=== PATIENT | male | born 1955 | race Caucasian/White ===

== ENCOUNTER 2020-10-19 11:55 | Emergency (ER) | payer BC, MEDICARE ==
[2020-10-19] MEDS ORDERED: Sodium Chloride 0.9% 2.5 ML Syringe FLUSH PRN (12:06)
[2020-10-19] MEDS ORDERED: Sodium Chloride 0.9% 10 ML Syringe FLUSH PRN (12:06)
--- NOTE | 2020-10-19 12:10 | EDM.PDOC ---
ED HPI GENERAL MEDICAL PROBLEM - General Chief Complaint: Cardiovascular Problem Stated Complaint: ELEVATED BP Time Seen by Provider: 10/19/20 11:59 - History of Present Illness INITIAL COMMENTS - FREE TEXT/NARRATIVE: History of present illness: [] For 3 or 4 days patient has had episodic lightheadedness. 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 The patient today felt lightheaded again. Each time he is lightheaded his blood pressure has been 160 your iron today it was over 170. He felt like he needed to be evaluated because of this new onset lightheadedness and new onset of elevated blood pressure readings. The patient's brother is treated for hypertension but the patient is not diabetic not hypertensive and does not get treated for high cholesterol. He is an active robison. His father did of a heart attack at the age of 64. There are no strokes in the family. The patient is a non-smoker. Review of systems: As per history of present illness and below otherwise all systems reviewed and negative. Past medical history: As per history of present illness and as reviewed below otherwise noncontributory. Surgical history: As per history of present illness and as reviewed below otherwise noncontributory. Social history: No reported history of drug or alcohol abuse. Family history: As per history of present illness and as reviewed below otherwise noncontribu tory. Physical exam: Constitutional - well developed, well-nourished and in no acute distress HEENT - normocephalic, no evidence of trauma - external nose and mouth normal - no mass in neck and no JVD - mucosae moist EYES - full EOM, PERRL, no icterus - no evidence of inflammation, injection, or drainage Respiratory - no respiratory distress, equal bilateral expansion, lungs clear to auscultation and no abnormal lung sounds Cardiovascular - Regular Rhythm with S1 and S2 appreciated and no murmur, gallop or rub. No carotid bruits appreciated GI - abdomen soft without distension or organomegaly - normal bowel sounds - no guard or rebound Musculoskeletal no gross deformity of long bones or joints - no tenderness, swelling or edema Neurologic -my customary brief neurologic exam is negative. Alert and oriented times four - CN II-XII grossly intact - motor sensory and coordination symmetrically normal Psychiatric - appropriate mood and affect with normal thought content Hematologic - No petechiae or purpura - mucosa appropriate color and sclera not pale - normal nail bed color and refill Integument - no rash or evidence of trauma - normal turgor Diagnostics: [] Therapeutics: [] Impression: [] Plan: [] Definitive disposition and diagnosis as appropriate pending reevaluation and review of above. - Related Data Allergies Allergy/AdvReac Type Severity Reaction Status Date / Time shellfish derived Allergy unsure Verified 10/19/20 12:04 Home Meds: Home Meds Celecoxib [CeleBREX] 200 mg PO DAILY 11/28/15 [History] Sertraline [Zoloft] 1 tab PO DAILY 11/28/15 [History] Aspirin/Calcium Carbonate/Mag [Aspirin Buffered 325 mg Tab] 1 tab PO DAILY 04/24/16 [History] Fish Oil/[place]-3 Fatty Acids [Fish Oil 1,000 MG] 1 cap PO DAILY 04/24/16 [History] Multivitamin [Daily Multiple Vitamin] 1 tab PO DAILY 04/24/16 [History] hydroCHLOROthiazide [Hydrochlorothiazide] 25 mg PO DAILY #60 tablet 10/19/20 [Rx] Past Medical History HEENT History: Reports: None Other HEENT History: wears glasses/contacts Cardiovascular History: Reports: None Respiratory History: Reports: None Gastrointestinal History: Reports: None Genitourinary History: Reports: None Musculoskeletal History: Reports: Arthritis, Fracture, Gout Other Musculoskeletal History: hx of fx bilateral clavicles, ribs and arms Neurological History: Reports: Other (See Below) Other Neuro History: hx of spinal degeneration Psychiatric History: Reports: Anxiety, Depression Endocrine/Metabolic History: Reports: None Hematologic History: Reports: None Immunologic History: Reports: None Oncologic (Cancer) History: Reports: None Dermatologic History: Reports: None - Infectious Disease History Infectious Disease History: Reports: Chicken Pox - Past Surgical History GI Surgical History: Reports: Colonoscopy, Hernia, Inguinal Musculoskeletal Surgical History: Reports: Other (See Below) Social & Family History - Family History Family Medical History: No Pertinent Family History ED ROS GENERAL - Review of Systems Review Of Systems: Comprehensive ROS is negative, except as noted in HPI. ED EXAM, GENERAL - Physical Exam Exam: See Below Free Text/Narrative:: My physical exam is in the HPI My physical exam is in the HPI #1 Interpretation EKG Interpretation Comments: EKG shows sinus rhythm with a heart rate of 55 and an axis of 54. MA interval 155 QT duration 423. QRS ST and T. Impression normal no prior for comparison. Course - Vital Signs Text/Narrative:: Blood pressure came down to 150/88. He still felt pretty normal in the emergency department. 1 we discussed the possibility of having the medication for blood pressure went up to 166/98. Patient's blood pressure is labile but his pulse remains under 60. Beta-anali is probably not a good idea for him with this fall so I recommended hydrochlorothiazide 25 mg daily. And a high potassium diet. He will follow up with his local doctor. He is considering just rechecking his blood pressure himself and not filling the prescription. Last Recorded V/S: Last Vital Signs Temp 36.4 C 10/19/20 12:05 Pulse 64 10/19/20 12:55 Resp 17 10/19/20 12:55 BP 153/85 H 10/19/20 12:55 Pulse Ox 99 10/19/20 12:55 - Orders/Labs/Meds Orders: Active Orders 24 hr Category Date Time Status EKG Documentation Completion [RC] AM Care 10/19/20 12:06 Active UA W/CARLYN RFLX IF INDICATED [URIN] Stat Lab 10/19/20 12:07 Ordered Sodium Chloride 0.9% [Saline Flush] Med 10/19/20 12:06 Active 10 ml FLUSH ASDIRECTED PRN Sodium Chloride 0.9% [Saline Flush] Med 10/19/20 12:06 Active 2.5 ml FLUSH ASDIRECTED PRN Saline Lock Insert [OM.PC] Stat Oth 10/19/20 12:06 Ordered Medication Orders Sodium Chloride (Sodium Chloride 0.9% 10 Ml Syringe) 10 ml FLUSH ASDIRECTED PRN PRN Reason: Keep Vein Open Last Admin: 10/19/20 12:10 Dose: 10 ml Documented by: ANDREEA Sodium Chloride (Sodium Chloride 0.9% 2.5 Ml Syringe) 2.5 ml FLUSH ASDIRECTED PRN PRN Reason: Keep Vein Open Last Admin: 10/19/20 12:10 Dose: 2.5 ml Documented by: ANDREEA Labs: Laboratory Tests 10/19/20 10/19/20 Range/Units 12:12 12:12 WBC 4.56 (4.0-11.0) K/uL RBC 4.92 (4.50-5.90) M/uL Hgb 15.6 (13.0-17.0) g/dL Hct 45.6 (38.0-50.0) % MCV 92.7 (80.0-98.0) fL MCH 31.7 (27.0-32.0) pg MCHC 34.2 (31.0-37.0) g/dL RDW Std Deviation 43.6 (28.0-62.0) fl RDW Coeff of Harish 13 (11.0-15.0) % Plt Count 193 (150-400) K/uL MPV 9.80 (7.40-12.00) fL Neut % (Auto) 56.8 (48.0-80.0) % Lymph % (Auto) 28.3 (16.0-40.0) % [place] % (Auto) 12.9 (0.0-15.0) % Eos % (Auto) 1.8 (0.0-7.0) % Baso % (Auto) 0.2 (0.0-1.5) % Neut # (Auto) 2.6 (1.4-5.7) K/uL Lymph # (Auto) 1.3 (0.6-2.4) K/uL [place] # (Auto) 0.6 (0.0-0.8) K/uL Eos # (Auto) 0.1 (0.0-0.7) K/uL Baso # (Auto) 0.0 (0.0-0.1) K/uL Nucleated RBC % 0.0 /100WBC Nucleated RBCs # 0 K/uL Sodium 140 (136-148) mmol/L Potassium 3.7 (3.5-5.1) mmol/L Chloride 103 (98-107) mmol/L Carbon Dioxide 27.7 (21.0-32.0) mmol/L BUN 16 (7.0-18.0) mg/dL Creatinine 0.9 (0.8-1.3) mg/dL Est Cr Clr Drug Dosing 83.36 mL/min Estimated GFR (MDRD) > 60.0 ml/min Glucose 108 H (74-106) mg/dL Calcium 8.0 L (8.5-10.1) mg/dL Total Bilirubin 0.5 (0.2-1.0) mg/dL AST 22 (15-37) IU/L ALT 30 (14-63) IU/L Alkaline Phosphatase 73 (46-116) U/L Troponin I < 0.050 (0.000-0.056) ng/mL Total Protein 7.4 (6.4-8.2) g/dL Albumin 3.8 (3.4-5.0) g/dL Globulin 3.6 (2.6-4.0) g/dL Albumin/Globulin Ratio 1.1 (0.9-1.6) TSH 3rd Generation 1.28 (0.36-3.74) uIU/mL Meds: Medications Generic Name Dose Route Start Last Admin Trade Name Freq PRN Reason Stop Dose Admin Sodium Chloride 10 ml 10/19/20 12:06 10/19/20 12:10 Sodium Chloride 0.9% 10 Ml Syringe FLUSH 10 ml ASDIRECTED PRN Administration Keep Vein Open Sodium Chloride 2.5 ml 10/19/20 12:06 10/19/20 12:10 Sodium Chloride 0.9% 2.5 Ml Syringe FLUSH 2.5 ml ASDIRECTED PRN Administration Keep Vein Open Departure - Departure Time of Disposition: 13:47 Disposition: Home, Self-Care 01 Condition: Good Clinical Impression: Intermittent lightheadedness, Elevated blood pressure reading Prescriptions: hydroCHLOROthiazide [Hydrochlorothiazide] 25 mg PO DAILY #60 tablet Referrals: PCP,None [Primary Care Provider] - Gadiel Alegre MD [Ordering Only Provider] - Forms: ED Department Discharge Additional Instructions: Consider starting the diuretic with a high potassium diet and follow-up with your primary doctor. At the least every blood pressure checked several times in the next few days and follow-up with your doctor. The following information is given to patients seen in the emergency department who are being discharged to home. This information is to outline your options for follow-up care. We provide all patients seen in our emergency department with a follow-up referral. The need for follow-up, as well as the timing and circumstances, are variable depending upon the specifics of your emergency department visit. If you don't have a primary care physician on staff, we will provide you with a referral. We always advise you to contact your personal physician following an emergency department visit to inform them of the circumstance of the visit and for follow-up with them and/or the need for any referrals to a consulting specialist. The emergency department will also refer you to a specialist when appropriate. This referral assures that you have the opportunity for follow-up care with a specialist. All of these measure are taken in an effort to provide you with optimal care, which includes your follow-up. Under all circumstances we always encourage you to contact your private physician who remains a resource for coordinating your care. When calling for follow-up care, please make the office aware that this follow-up is from your recent emergency room visit. If for any reason you are refused follow-up, please contact the [facility] Emergency Department at and asked to speak to the emergency department charge nurse. Sepsis Event Note (ED) - Evaluation Sepsis Screening Result: No Definite Risk - Focused Exam Vital Signs: Vital Signs Temp Pulse Resp BP Pulse Ox 10/19/20 12:55 64 17 153/85 H 99 10/19/20 12:42 60 18 158/87 H 98 10/19/20 12:05 36.4 C 58 L 16 171/88 H 98 - My Orders Last 24 Hours: My Active Orders 10/19/20 12:06 EKG Documentation Completion [RC] AM Sodium Chloride 0.9% [Saline Flush] 10 ml FLUSH ASDIRECTED PRN Sodium Chloride 0.9% [Saline Flush] 2.5 ml FLUSH ASDIRECTED PRN Saline Lock Insert [OM.PC] Stat 10/19/20 12:07 UA W/CARLYN RFLX IF INDICATED [URIN] Stat - Assessment/Plan Last 24 Hours: My Active Orders 10/19/20 12:06 EKG Documentation Completion [RC] AM Sodium Chloride 0.9% [Saline Flush] 10 ml FLUSH ASDIRECTED PRN Sodium Chloride 0.9% [Saline Flush] 2.5 ml FLUSH ASDIRECTED PRN Saline Lock Insert [OM.PC] Stat 10/19/20 12:07 UA W/CARLYN RFLX IF INDICATED [URIN] Stat
[2020-10-19 13:00] LABS: BLOOD UREA NITROGEN,BUN 16 mg/dL (7.0-18.0); CARBON DIOXIDE,CO2 27.7 mmol/L (21.0-32.0); CHLORIDE,CL 103 mmol/L (98-107); GLUCOSE RANDOM 108 mg/dL (74-106); POTASSIUM,K 3.7 mmol/L (3.5-5.1); SODIUM,NA 140 mmol/L (136-148)
--- NOTE | 2020-10-19 13:22 | CR ---
Indication: Hypertension Comparison: Single view chest June 2013 Technique: Single AP view chest Findings: There is hyperinflation and chronic interstitial change. There is no focal consolidation, effusion, or pneumothorax. The cardiomediastinal silhouette is within normal limits. The bony thorax is grossly intact. Impression: No acute cardiopulmonary abnormality. Dictated by Tino Linder MD @ 10/19/2020 1:19:[address] Tino Linder @ Oct 19 2020 1:19PM
--- NOTE | 2020-10-19 13:26 | CT ---
Indication: High blood pressure, lightheadedness Technique: Volumetric multidetector CT images of the head were obtained without the administration of low osmolar intravenous contrast. Comparison: None available Findings: There is no intra-axial or extra-axial fluid collection. There is no mass effect or midline shift. There is age-related cortical atrophy with mild sulcal widening and ex vacuo dilatation of the lateral ventricles. There are chronic small vessel disease changes in the subcortical and periventricular white matter without lost ramirez-white differentiation. The orbits and their contents are grossly within normal limits. The bony calvarium is grossly intact. The paranasal sinuses are clear. The mastoid air cells are well aerated. Impression: 1. Age-related changes of the brain without acute intracranial abnormality. Please note that all CT scans at this facility use dose modulation, iterative reconstruction, and/or weight-based dosing when appropriate to reduce radiation dose to as low as reasonably achievable. Dictated by Tino Linder MD @ 10/19/2020 1:23:[address] Tino Linder @ Oct 19 2020 1:23PM
[2020-10-19 13:55] VITALS: BP 166/93; PULSE 62
== END 2020-10-19 13:57 | disposition home or self-care (01) ==
LOC: MW.ED 11:55
DX: R42 Dizziness and giddiness (principal); R03.0 Elevated blood-pressure reading, without diagnosis of hypertension; M10.9 Gout, unspecified; Z79.82 Long term (current) use of aspirin; Z79.899 Other long term (current) drug therapy; Z91.013 Allergy to seafood
CPT/HCPCS: 36415; 70450; 70450-26; 71045; 71045-26; 80053; 84443; 84484; 85025; 93005; 93010; 99283; 99284-25

== ENCOUNTER 2022-07-07 12:38 | Emergency (ER) | payer BC, MEDICARE ==
[2022-07-07 13:35] LABS: CARBON DIOXIDE,CO2 32.1 mmol/L (21.0-32.0); POTASSIUM,K 4.3 mmol/L (3.5-5.1)
[2022-07-07] MEDS ORDERED: Iopamidol 755 MG/ML 500 ML Multipack Bottle IVPUSH STA (16:12)
[2022-07-07 16:18] VITALS: BP 131/80; PULSE 85
== END 2022-07-07 16:56 | disposition home or self-care (01) ==
LOC: MW.ED 12:38
DX: S86.112A Strain of other muscle(s) and tendon(s) of posterior muscle group at lower leg level, left leg, initial encounter (principal); M10.9 Gout, unspecified; Z91.013 Allergy to seafood; Z79.82 Long term (current) use of aspirin; Z79.899 Other long term (current) drug therapy
CPT/HCPCS: 36415; 73706; 80053; 83735; 85025; 85379; 85610; 93005; 99283; Q9967; 93010

== ENCOUNTER 2022-08-28 10:02 | Day surgery (SDC) | payer BC, MEDICARE ==
[~2022-08-28 10:02] MED LIST: Lactated Ringers 1,000 ML IV SCH
[2022-08-28] MEDS ORDERED: Propofol 200 MG/20 ML SDV ONE ×2 (12:48→13:17)
[2022-08-28 16:38] VITALS: BP 138/79; PULSE 62
== END 2022-08-28 14:30 | disposition home or self-care (01) ==
LOC: MW.SDS 10:02
PROVIDERS: ATTEND Surgery
DX: Z12.11 Encounter for screening for malignant neoplasm of colon (principal); D12.0 Benign neoplasm of cecum; D12.3 Benign neoplasm of transverse colon; D12.8 Benign neoplasm of rectum; K57.30 Diverticulosis of large intestine without perforation or abscess without bleeding; F32.A Depression, unspecified; K64.8 Other hemorrhoids; Z86.010 Personal history of colon polyps; M19.90 Unspecified osteoarthritis, unspecified site; M10.9 Gout, unspecified; F41.9 Anxiety disorder, unspecified; F17.200 Nicotine dependence, unspecified, uncomplicated; Z79.899 Other long term (current) drug therapy; Z91.041 Radiographic dye allergy status; Z98.890 Other specified postprocedural states; Z91.013 Allergy to seafood; Z79.82 Long term (current) use of aspirin
CPT/HCPCS: 45380; 45385; J2704; J7120; 00812